=== PATIENT | female | born 1985 | race Caucasian/White ===

== ENCOUNTER 2016-03-23 17:17 | Emergency (ER) | payer MEDICAID ==
[2016-03-23 17:18] VITALS: BMI 22.2
[2016-03-23 17:33] VITALS: TEMP 98.9
[2016-03-23 17:50] LABS: AUTOMATED BASOPHIL 0.8 % (0-2); AUTOMATED EOSINOPHIL 1.1 % (0-5); AUTOMATED LYMPH 44.9 % (17-44); AUTOMATED MONOCYTE 10.1 % (3-10); AUTOMATED NEUTROPHIL 43.1 % (45-76); MPV 9.1 fL (7.4-10.4)
[2016-03-23 18:00] LABS: BLOOD UREA NITROGEN 16 MG/DL (7-17); CALCIUM 8.8 MG/DL (8.4-10.2); CALCULATED OSMOLALITY 272 MOs/Kg (270-290); CHLORIDE 105 mEq/L (98-107); GLUCOSE 90 MG/DL (70-99); SODIUM LEVEL 141 mEq/L (137-146); TOTAL PROTEIN 7.7 G/DL (6.3-8.2)
[2016-03-23 18:02] VITALS: BP 142/70; PULSE 89
[2016-03-23] MEDS ORDERED: HYDROCODONE 5 MG/ACETAMIN 325 MG TAB PO ONE (18:07)
[2016-03-23] MEDS ORDERED: IBUPROFEN 600 MG TAB PO ONE (18:07)
--- NOTE | 2016-03-23 18:22 | EDPRACDOC ---
- General Information Chief Complaint: Abdominal Pain Stated Complaint: ABD PAIN Time Seen by Provider: 03/23/16 17:54 Information Source: Patient Mode Of Arrival: Car Home Medications: Home Medications Hydrocodone/Acetaminophen [Lortab 5-325 mg Tablet] 1 each PO Q4H PRN #15 tablet 03/23/16 Allergies/Adverse Reactions: Allergies Allergy/AdvReac Type Severity Reaction Status Date / Time ondansetron Allergy Headache Verified 03/23/16 17:47 [From Zofran (as hydrochloride)] - History of Present Illness Onset: 4 DAYS HPI: PT HAS HAD LOWER ABD PAIN FOR THE PAST 4 DAYS. THE PT SAID THAT HER BOYFRIEND GAVE HER CHLAMYDIA A FEW MONTHS BACK AND THIS FEELS SIMILAR. SHE WAS TREATED. HER BOYFRIEND TOLD HER THAT HE WAS TREATED, BUT SHE IS NOT SURE. PT ALSO HAS SOME VAGINAL D/C. Pain Location: Reports: Suprapubic Pain Context: Reports: Spontaneous Pain Severity: Moderate Pain Quality: Reports: Burning Last Menstrual Period: 02/26/16 : (UNKNOWN) Abortus: 0 Control Method: Reports: None Adult Abdominal History: Reports: Abdominal Surgery. Denies: Urolithiasis Female Abdominal History: Reports: Abdominal Surgery. Denies: UTI, Ectopic, PID , Urolithiasis Modifying Factors: improves with: Nothing Oral Intake: Normal Urinary Output: Normal - Treatment Prior to ED Arrival Reported Medications/Treatment ACTIVITIES VOLUNTEER Ibuprofen/Acetaminophen (Dose/ IBUPROFEN 800MG AM Time) ED Past Medical History - Patient Medical History GI/ History: Reports: Kidney Stones. Denies: Urinary Tract Infection Psychological History: Denies: Depression Surgical History: Reports: Cholecystectomy. Denies: Hysterectomy - Family Medical History Denies: Hypertension, Diabetes, Cancer, Stroke, Cardiac Disorders - Social Medical History Smoking Status: Never smoker ETOH: None Substance Abuse: None Lives In: Home EDM Review of Systems - Review of Systems ROS Negative Except as Marked: Yes All systems reviewed and were negative except as marked Gastrointestinal: Pain Genitourinary: Vaginal Discharge - Physical Exam Constitutional: Alert (Awake), No apparent distress Oriented to: Time, Person, Place Last recorded Vital Signs: Last Vital Signs Temp 98.9 F 03/23/16 17:33 Pulse 89 03/23/16 17:33 Resp 16 03/23/16 17:33 BP 142/70 03/23/16 17:33 Pulse Ox 100 01/14/17 17:33 Oxygen Pulse Oxygen Saturation 100 O2 Device Room Air Oxygen Flow Rate Fraction of Inspired Oxygen ( FIO2) - HEENT Head: Normal ( normocephalic) Eye Exam: Normal (PERRL, EOMI, Sclera white) Oropharynx: Normal (Pharynx:Moist without exudate,Gums-no swelling) ENT EAC: Normal TMJ: Normal Nose: No Symptoms Reported (septum midline) Neck: Normal (FROM, trachea at midline) - Respiratory/Cardiovascular Respiratory: Normal - CTA (BBS clear to auscultation without adventitious sounds ) Cardiovascular: Normal (RRR without murmur, gallop or rub) - GI Auscultation: Normal (NABS) Palpation: Normal (Soft,No rebound or guarding, non distended) Tenderness: Mild, Suprapubic Rushing's Sign: Negative - Musculoskeletal Back: Normal (Non-Tender) Extremities: Normal (Normal tone, Pulses 2+ No cyanosis or edema, FROM) - Integumentary Skin: Normal, Warm, Dry Lymphatics: Normal (no adenopathy) - Neurologic Memory Impaired: Normal Motor Function: Normal (Normal tone, Pulses 2+ No cyanosis or edema, FROM) Cranial Nerve: Normal (CN II-X11 intact sensation, strength 5/5) Cerebellar: Normal Mood Description: Normal Thought: Coherent Perception: Normal - Results 03/23/16 17:35 03/23/16 17:35 WBC 5.8 xk/uL (3.8-10.8) 03/23/16 17:35 RBC 4.58 xM/uL (4.20-5.40) 03/23/16 17:35 Hgb 12.3 g/dL (12.0-16.0) 03/23/16 17:35 Hct 37.6 % (36-47) 03/23/16 17:35 MCV 82 fL (81-99) 03/23/16 17:35 MCH 26.8 pg (27-32) L 03/23/16 17:35 MCHC 32.6 g/dl (33-36) L 03/23/16 17:35 RDW 16.0 % (11.5-14.5) H 03/23/16 17:35 Plt Count 231 xk/uL (130-400) 03/23/16 17:35 MPV 9.1 fL (7.4-10.4) 03/23/16 17:35 Neut % (Auto) 43.1 % (45-76) L 03/23/16 17:35 Lymph % (Auto) 44.9 % (17-44) H 03/23/16 17:35 [place] % (Auto) 10.1 % (3-10) H 03/23/16 17:35 Eos % (Auto) 1.1 % (0-5) 03/23/16 17:35 Baso % (Auto) 0.8 % (0-2) 03/23/16 17:35 Absolute Neuts (auto) 2.49 xk/uL (1.7-8.2) 03/23/16 17:35 Absolute Lymphs (auto) 2.55 xk/uL (0.65-4.75) 03/23/16 17:35 Sodium 141 mEq/L (137-146) 03/23/16 17:35 Potassium 4.0 mEq/L (3.5-5.1) 03/23/16 17:35 Chloride 105 mEq/L (98-107) 03/23/16 17:35 Carbon Dioxide 25 mMOL/L (22-33) 03/23/16 17:35 Anion Gap 15 mEq/L (8-16) 03/23/16 17:35 BUN 16 MG/DL (7-17) 03/23/16 17:35 Creatinine 1.00 MG/DL (0.52-1.04) 03/23/16 17:35 Estimated GFR (MDRD) > 60 mL/min (>=60) 03/23/16 17:35 Glucose 90 MG/DL (70-99) 03/23/16 17:35 Calculated Osmolality 272 MOs/Kg (270-290) 03/23/16 17:35 Calcium 8.8 MG/DL (8.4-10.2) 03/23/16 17:35 Total Bilirubin 0.7 MG/DL (0.2-1.3) 03/23/16 17:35 AST 24 IU/L (14-36) 03/23/16 17:35 ALT 31 IU/L (9-52) 03/23/16 17:35 Alkaline Phosphatase 55 IU/L (38-126) 03/23/16 17:35 Total Protein 7.7 G/DL (6.3-8.2) 03/23/16 17:35 Albumin 4.4 G/DL (3.5-5.0) 03/23/16 17:35 Urine Color Yellow 03/23/16 18:00 Urine Clarity Sl cldy 03/23/16 18:00 Urine pH 7.0 (5.0-8.0) 03/23/16 18:00 Ur Specific [place] 1.015 (1.003-1.035) 03/23/16 18:00 Urine Protein Neg (NEG/TRACE) 03/23/16 18:00 Urine Glucose (UA) Neg (NEGATIVE) 03/23/16 18:00 Urine Ketones Neg (NEGATIVE) 03/23/16 18:00 Urine Occult Blood Neg (NEG/TRACE) 03/23/16 18:00 Urine Nitrite Neg (NEGATIVE) 03/23/16 18:00 Urine Bilirubin Neg (NEGATIVE) 03/23/16 18:00 Urine Urobilinogen <2.0 MG/DL (0-1) 03/23/16 18:00 Ur Leukocyte Esterase Neg (NEGATIVE) 03/23/16 18:00 Urine RBC 2-5 (0-5) 03/23/16 18:00 Urine WBC 0-2 (0-5) 03/23/16 18:00 Ur Epithelial Cells 2+ 03/23/16 18:00 Urine Yeast Few (NONE) H 03/23/16 18:00 Urine Test Neg (NEGATIVE) 03/23/16 18:00 Microbiology 03/23/16 18:05 CORDELL Preparation - Final Vaginal 03/23/16 18:05 Trichomonas [place] - Final Vaginal Lab Results 03/23/16 03/23/16 03/23/16 18:00 18:00 17:35 WBC 5.8 RBC 4.58 Hgb 12.3 Hct 37.6 MCV 82 MCH 26.8 L MCHC 32.6 L RDW 16.0 H Plt Count 231 MPV 9.1 Neut % (Auto) 43.1 L Lymph % (Auto) 44.9 H [place] % (Auto) 10.1 H Eos % (Auto) 1.1 Baso % (Auto) 0.8 Absolute Neuts (auto) 2.49 Absolute Lymphs (auto) 2.55 Sodium Potassium Chloride Carbon Dioxide Anion Gap BUN Creatinine Estimated GFR (MDRD) Glucose Calculated Osmolality Calcium Total Bilirubin AST ALT Alkaline Phosphatase Total Protein Albumin Urine Color Yellow Urine Clarity Sl cldy Urine pH 7.0 Ur Specific [place] 1.015 Urine Protein Neg Urine Glucose (UA) Neg Urine Ketones Neg Urine Occult Blood Neg Urine Nitrite Neg Urine Bilirubin Neg Urine Urobilinogen <2.0 Ur Leukocyte Esterase Neg Urine RBC 2-5 Urine WBC 0-2 Ur Epithelial Cells 2+ Urine Yeast Few H Urine Test Neg 03/23/16 17:35 WBC RBC Hgb Hct MCV MCH MCHC RDW Plt Count MPV Neut % (Auto) Lymph % (Auto) [place] % (Auto) Eos % (Auto) Baso % (Auto) Absolute Neuts (auto) Absolute Lymphs (auto) Sodium 141 Potassium 4.0 Chloride 105 Carbon Dioxide 25 Anion Gap 15 BUN 16 Creatinine 1.00 Estimated GFR (MDRD) > 60 Glucose 90 Calculated Osmolality 272 Calcium 8.8 Total Bilirubin 0.7 AST 24 ALT 31 Alkaline Phosphatase 55 Total Protein 7.7 Albumin 4.4 Urine Color Urine Clarity Urine pH Ur Specific [place] Urine Protein Urine Glucose (UA) Urine Ketones Urine Occult Blood Urine Nitrite Urine Bilirubin Urine Urobilinogen Ur Leukocyte Esterase Urine RBC Urine WBC Ur Epithelial Cells Urine Yeast Urine Test - Additional Information PT WISHED TO BE TX'D FOR GC/CHL WHILE HERE. Decision Time to Discharge: 18:37 - Departure Yes I personally saw and evaluated the patient. Disposition: Home Condition: Fair Final Diagnosis: Abdominal pain, Cervicitis Instructions: Acute Abdominal Pain (ED) Education/Counseling Given To: Patient Education/Counseling Given Regarding: Diagnosis, Treatment, Follow Up Referrals: Remigio Beckham PA [Primary Care Provider] - One Week Casie Vega DO [Staff Physician] - One Week Prescriptions: Hydrocodone/Acetaminophen [Lortab 5-325 mg Tablet] 1 each PO Q4H PRN #15 tablet PRN Reason: Pain Additional Instructions: ALL SEXUAL PARTNERS TO BE CHECKED FOR STD. NO SEX UNTIL RESULTS ARE BACK.
[2016-03-23 18:33] LABS: LEUKOCYTES/URINE NEG (NEGATIVE); NITRITE/URINE NEG (NEGATIVE); URINE OCCULT BLOOD NEG (NEG/TRACE); WBC/URINE 0-2 (0-5)
[2016-03-23] MEDS ORDERED: AZITHROMYCIN 250 MG TAB PO ONE (18:37)
[2016-03-23] MEDS ORDERED: CEFTRIAXONE 250 MG VIAL IM ONE (18:45)
[2016-03-23] MEDS ORDERED: LIDOCAINE 1% 5 ML (METHYLPARABEN FREE) ONE (18:48)
[2016-03-26 05:38] LABS: CHLAMY BY NUCLEIC ACID AMP Negative (Negative)
[2016-03-26 07:14] LABS: GC BY NUCLEIC ACID AMP Negative (Negative)
== END 2016-03-23 18:55 | disposition home or self-care (01) ==
LOC: ED 17:17
DX: N72 Inflammatory disease of cervix uteri (principal)
CPT/HCPCS: 36415; 80053; 81001; 81025; 85025; 87210; 87220; 87491; 87591; 96372; 99283; J0696; J3490

== ENCOUNTER 2016-04-05 22:00 | Emergency (ER) | payer MEDICAID ==
[2016-04-05 22:52] VITALS: TEMP 98.5; BMI 21.4
[2016-04-05 23:03] LABS: AUTOMATED BASOPHIL 0.4 % (0-2); AUTOMATED EOSINOPHIL 0.3 % (0-5); AUTOMATED LYMPH 18.3 % (17-44); MPV 9.4 fL (7.4-10.4)
[2016-04-05 23:13] LABS: BLOOD UREA NITROGEN 16 MG/DL (7-17); CALCIUM 9.4 MG/DL (8.4-10.2); CALCULATED OSMOLALITY 270 MOs/Kg (270-290); CHLORIDE 105 mEq/L (98-107); GLUCOSE 97 MG/DL (70-99); SODIUM LEVEL 140 mEq/L (137-146); TOTAL PROTEIN 7.8 G/DL (6.3-8.2)
[2016-04-05 23:50] LABS: LEUKOCYTES/URINE NEG (NEGATIVE); NITRITE/URINE NEG (NEGATIVE); URINE OCCULT BLOOD NEG (NEG/TRACE)
[2016-04-05] MEDS ORDERED: NS 1,000 ML IV ONE (23:55)
[2016-04-05] MEDS ORDERED: PROMETHAZINE 25 MG/ML VIAL IV ONE (23:55)
--- NOTE | 2016-04-06 | EDPRACDOC ---
[id number] Time Seen by Provider: 04/05/16 23:36 Information Source: Patient Mode Of Arrival: Car Home Medications: Home Medications Hydrocodone/Acetaminophen [Lortab 5-325 mg Tablet] 1 each PO Q4H PRN #15 tablet 03/23/16 Promethazine HCl [Phenergan] 25 mg IN Q8H PRN #12 supp 04/06/16 Promethazine [Phenergan] 25 mg PO Q6H PRN #10 tab 04/06/16 Allergies/Adverse Reactions: Allergies Allergy/AdvReac Type Severity Reaction Status Date / Time ondansetron Allergy Headache Verified 03/23/16 17:47 [From Zofran (as hydrochloride)] - History of Present Illness Onset: Friday HPI: PT SAID THAT SHE'S HAD ABD PAIN FOR THE PAST FEW DAYS. SHE HAS BEEN HERE FREQUENTLY FOR ABD PAIN. SHE HAD A CT SCAN OF HER ABD/PELVIS ON 02/22 THAT WAS NL. SHE WAS HERE AGAIN ON THE AND THOUGHT SHE HAD CHLAMYDIA (SHE DID NOT) . PT TOOK 4 TESTS LAST WEEK AND 2 WERE +. SHE WENT [place] [facility] [place] AND WAS TOLD PREG TEST WAS NEG. PT REPORTS MULTIPLE EPISODES OF VOMITING AND DIARRHEA TODAY. SHE CAN'T KEEP ANYTHING DOWN. Symptoms Occured: Reports: Spontaneous Duration: Reports: Intermittent Recent: Reports: None Pain Severity: Mild Pain Location: Reports: Diffuse : No History of: Denies: UTI, Ectopic, PID, Urolithiasis Associated Signs & Symptoms: Reports: Nausea, Vomiting, Diarrhea Oral Intake: Decreased Urinary Output: Decreased - Treatment Prior to ED Arrival Reported Medications/Treatment REAL ESTATE VALUER Treated With Medication REAL ESTATE VALUER YES Medications REAL ESTATE VALUER (Medication/ phenergan 25 mg @ 1600 Dose/Time) ED Past Medical History - Patient Medical History GI/ History: Reports: Kidney Stones. Denies: Urinary Tract Infection Psychological History: Denies: Depression Systemic History: Denies: Cancer Surgical History: Reports: Cholecystectomy. Denies: Hysterectomy - Family Medical History Denies: Hypertension, Diabetes, Cancer, Stroke, Cardiac Disorders - Social Medical History Smoking Status: Never smoker ETOH: None Substance Abuse: None Lives In: Home EDM Review of Systems - Review of Systems ROS Negative Except as Marked: Yes All systems reviewed and were negative except as marked Gastrointestinal: Nausea, Pain, Vomiting - Physical Exam Constitutional: Alert (Awake), No apparent distress Oriented to: Time, Person, Place Last recorded Vital Signs: Last Vital Signs Temp 98.5 F 04/05/16 22:48 Pulse 91 04/05/16 22:48 Resp 18 04/05/16 22:48 BP 110/71 04/05/16 22:48 Pulse Ox 99 04/05/16 22:48 Oxygen Pulse Oxygen Saturation 99 O2 Device Oxygen Flow Rate Fraction of Inspired Oxygen ( FIO2) - HEENT Head: Normal ( normocephalic) Eye Exam: Normal (PERRL, EOMI, Sclera white) Oropharynx: Normal (Pharynx:Moist without exudate,Gums-no swelling) ENT EAC: Normal TMJ: Normal Nose: No Symptoms Reported (septum midline) Neck: Normal (FROM, trachea at midline) - Respiratory/Cardiovascular Respiratory: Normal - CTA (BBS clear to auscultation without adventitious sounds ) Cardiovascular: Normal (RRR without murmur, gallop or rub) - GI Auscultation: Normal (NABS) Palpation: Normal (Soft,No rebound or guarding, non distended) Tenderness: Non tender Rushing's Sign: Negative - Musculoskeletal Back: Normal (Non-Tender) Extremities: Normal (Normal tone, Pulses 2+ No cyanosis or edema, FROM) - Integumentary Skin: Normal, Warm, Dry Lymphatics: Normal (no adenopathy) - Neurologic Memory Impaired: Normal Motor Function: Normal (Normal tone, Pulses 2+ No cyanosis or edema, FROM) Cranial Nerve: Normal (CN II-X11 intact sensation, strength 5/5) Cerebellar: Normal Mood Description: Normal Thought: Coherent Perception: Normal - Results 04/05/16 22:50 04/05/16 22:50 WBC 5.8 xk/uL (3.8-10.8) 04/05/16 22:50 RBC 4.99 xM/uL (4.20-5.40) 04/05/16 22:50 Hgb 13.3 g/dL (12.0-16.0) 04/05/16 22:50 Hct 41.3 % (36-47) 04/05/16 22:50 MCV 83 fL (81-99) 04/05/16 22:50 MCH 26.6 pg (27-32) L 04/05/16 22:50 MCHC 32.1 g/dl (33-36) L 04/05/16 22:50 RDW 15.3 % (11.5-14.5) H 04/05/16 22:50 Plt Count 178 xk/uL (130-400) 04/05/16 22:50 MPV 9.4 fL (7.4-10.4) 04/05/16 22:50 Neut % (Auto) 75.0 % (45-76) 04/05/16 22:50 Lymph % (Auto) 18.3 % (17-44) 04/05/16 22:50 [place] % (Auto) 6.0 % (3-10) 04/05/16 22:50 Eos % (Auto) 0.3 % (0-5) 04/05/16 22:50 Baso % (Auto) 0.4 % (0-2) 04/05/16 22:50 Absolute Neuts (auto) 4.35 xk/uL (1.7-8.2) 04/05/16 22:50 Absolute Lymphs (auto) 1.04 xk/uL (0.65-4.75) 04/05/16 22:50 Sodium 140 mEq/L (137-146) 04/05/16 22:50 Potassium 3.5 mEq/L (3.5-5.1) 04/05/16 22:50 Chloride 105 mEq/L (98-107) 04/05/16 22:50 Carbon Dioxide 24 mMOL/L (22-33) 04/05/16 22:50 Anion Gap 15 mEq/L (8-16) 04/05/16 22:50 BUN 16 MG/DL (7-17) 04/05/16 22:50 Creatinine 0.80 MG/DL (0.52-1.04) 04/05/16 22:50 Estimated GFR (MDRD) > 60 mL/min (>=60) 04/05/16 22:50 Glucose 97 MG/DL (70-99) 04/05/16 22:50 Calculated Osmolality 270 MOs/Kg (270-290) 04/05/16 22:50 Calcium 9.4 MG/DL (8.4-10.2) 04/05/16 22:50 Total Bilirubin 1.2 MG/DL (0.2-1.3) 04/05/16 22:50 AST 23 IU/L (14-36) 04/05/16 22:50 ALT 33 IU/L (9-52) 04/05/16 22:50 Alkaline Phosphatase 62 IU/L (38-126) 04/05/16 22:50 Total Protein 7.8 G/DL (6.3-8.2) 04/05/16 22:50 Albumin 4.6 G/DL (3.5-5.0) 04/05/16 22:50 Amylase 70 IU/L (30-110) 04/05/16 22:50 Lipase 108 U/L (23-300) 04/05/16 22:50 Urine Color Yellow 04/05/16 23:35 Urine Clarity Clear 04/05/16 23:35 Urine pH 5.0 (5.0-8.0) 04/05/16 23:35 Ur Specific [place] 1.025 (1.003-1.035) 04/05/16 23:35 Urine Protein 1+ (NEG/TRACE) H 04/05/16 23:35 Urine Glucose (UA) Neg (NEGATIVE) 04/05/16 23:35 Urine Ketones 2+ (NEGATIVE) H 04/05/16 23:35 Urine Occult Blood Neg (NEG/TRACE) 04/05/16 23:35 Urine Nitrite Neg (NEGATIVE) 04/05/16 23:35 Urine Bilirubin Neg (NEGATIVE) 04/05/16 23:35 Urine Urobilinogen <2.0 MG/DL (0-1) 04/05/16 23:35 Ur Leukocyte Esterase Neg (NEGATIVE) 04/05/16 23:35 Urine RBC 2-5 (0-5) 04/05/16 23:35 Urine WBC 2-5 (0-5) 04/05/16 23:35 Ur Epithelial Cells 2+ 04/05/16 23:35 Urine Bacteria 1+ (NEG/FEW) H 04/05/16 23:35 Hyaline Casts 2-5 (0-2) H 04/05/16 23:35 Urine Mucus Mod (NEG/OCC) H 04/05/16 23:35 Urine Test Neg (NEGATIVE) 04/05/16 23:35 Lab Results 04/05/16 04/05/16 04/05/16 23:35 23:35 22:50 WBC 5.8 RBC 4.99 Hgb 13.3 Hct 41.3 MCV 83 MCH 26.6 L MCHC 32.1 L RDW 15.3 H Plt Count 178 MPV 9.4 Neut % (Auto) 75.0 Lymph % (Auto) 18.3 [place] % (Auto) 6.0 Eos % (Auto) 0.3 Baso % (Auto) 0.4 Absolute Neuts (auto) 4.35 Absolute Lymphs (auto) 1.04 Sodium Potassium Chloride Carbon Dioxide Anion Gap BUN Creatinine Estimated GFR (MDRD) Glucose Calculated Osmolality Calcium Total Bilirubin AST ALT Alkaline Phosphatase Total Protein Albumin Amylase Lipase Urine Color Yellow Urine Clarity Clear Urine pH 5.0 Ur Specific [place] 1.025 Urine Protein 1+ H Urine Glucose (UA) Neg Urine Ketones 2+ H Urine Occult Blood Neg Urine Nitrite Neg Urine Bilirubin Neg Urine Urobilinogen <2.0 Ur Leukocyte Esterase Neg Urine RBC 2-5 Urine WBC 2-5 Ur Epithelial Cells 2+ Urine Bacteria 1+ H Hyaline Casts 2-5 H Urine Mucus Mod H Urine Test Neg 04/05/16 22:50 WBC RBC Hgb Hct MCV MCH MCHC RDW Plt Count MPV Neut % (Auto) Lymph % (Auto) [place] % (Auto) Eos % (Auto) Baso % (Auto) Absolute Neuts (auto) Absolute Lymphs (auto) Sodium 140 Potassium 3.5 Chloride 105 Carbon Dioxide 24 Anion Gap 15 BUN 16 Creatinine 0.80 Estimated GFR (MDRD) > 60 Glucose 97 Calculated Osmolality 270 Calcium 9.4 Total Bilirubin 1.2 AST 23 ALT 33 Alkaline Phosphatase 62 Total Protein 7.8 Albumin 4.6 Amylase 70 Lipase 108 Urine Color Urine Clarity Urine pH Ur Specific [place] Urine Protein Urine Glucose (UA) Urine Ketones Urine Occult Blood Urine Nitrite Urine Bilirubin Urine Urobilinogen Ur Leukocyte Esterase Urine RBC Urine WBC Ur Epithelial Cells Urine Bacteria Hyaline Casts Urine Mucus Urine Test - Additional Information PT STILL REPORTING NAUSEA AFTER IM PHENERGAN. SHE REFUSED REGLAN AND TORADOL AND CURSED AT THE NURSE. I SUSPECT PT IS WANTING IV NARCOTICS. Decision Time to Discharge: 00:56 - Departure Yes I personally saw and evaluated the patient. Disposition: Home Condition: Fair Final Diagnosis: Nausea and vomiting Instructions: Acute Nausea and Vomiting (ED) Education/Counseling Given To: Patient Education/Counseling Given Regarding: Diagnosis, Treatment, Follow Up Referrals: Remigio Beckham PA [Primary Care Provider] - One Week Prescriptions: New Promethazine [Phenergan] 25 mg PO Q6H PRN #10 tab PRN Reason: Nausea/Vomiting Promethazine HCl [Phenergan] 25 mg IN Q8H PRN #12 supp PRN Reason: Nausea/Vomiting No Action Hydrocodone/Acetaminophen [Lortab 5-325 mg Tablet] 1 each PO Q4H PRN #15 tablet PRN Reason: Pain
[2016-04-06] MEDS ORDERED: PROMETHAZINE 25 MG/ML VIAL IM ONE (00:05)
[2016-04-06] MEDS ORDERED: KETOROLAC TROMETH 30 MG/ML VIAL IM ONE (00:42)
[2016-04-06] MEDS ORDERED: METOCLOPRAMIDE 10 MG/2 ML VIAL IM ONE (00:42)
[2016-04-06 01:06] VITALS: BP 123/55; PULSE 97
== END 2016-04-06 01:04 | disposition home or self-care (01) ==
LOC: ED 22:00
DX: R11.2 Nausea with vomiting, unspecified (principal)
CPT/HCPCS: 36415; 80053; 81001; 81025; 82150; 83690; 85025; 96372; 99283; J2550; J1885; J2765